=== PATIENT | male | born 1985 | race Caucasian/White ===

== ENCOUNTER 2016-08-25 21:23 | Emergency (ER) | payer MEDICAID ==
[~2016-08-25] VITALS: Wt 78.0 kg
[~2016-08-25 21:23] MED LIST: ASPI-781 PO; ATOR20TA38 PO; HYDR-762 PO; INSU100C SC; LANT3I SC; MTF1000T PO
[2016-08-25] MEDS ORDERED: KETOROLAC 30 MG INJ IM STA (21:52)
[2016-08-25] MEDS ORDERED: CEPH-443 PO (21:54)
[2016-08-25] MEDS ORDERED: BACTDS PO (21:54)
[2016-08-25] MEDS ORDERED: OXYC-279 PO (21:54)
[2016-08-25] MEDS ORDERED: IBUP-1542 PO (21:54)
--- NOTE | 2016-08-25 21:58 | ERD ---
ER Documentation Chief Complaint Date/Time DATE: 08/25/16 TIME: 21:56 Chief Complaint rt great toe pain, redness, necrosis 4 weeks HPI 31-year-old man presents with right toe pain and discomfort 1 week. He states last month he used oral antibiotics for 9 days and had initial relief. He denies purulent discharge or drainage from the toe, no difficulty ambulating, no chest pain or shortness of breath. He is post osteomyelitis and left hallux amputation ROS All systems reviewed and are negative except as per history of present illness. Medications Home Meds Active Scripts Ibuprofen* (Ibuprofen*) 600 Mg Tablet, 600 MG PO Q8 for PAIN AND/OR INFLAMMATION , #30 TAB Prov:DALY BOYCE MD 08/25/16 Sulfamethoxazole-Trimethoprim* (Bactrim* DS) 800-160 Mg Tab, 1 TAB PO BID for 10 Days, TAB Prov:DALY BOYCE MD 08/25/16 Cephalexin* (Keflex*) 500 Mg Capsule, 500 MG PO TID for 10 Days, CAP Prov:DALY BOYCE MD 08/25/16 Oxycodone HCl/Acetaminophen (Percocet 5-325 mg Tablet) 1 Each Tablet, 1 EACH PO TID for PAIN, #20 TAB Prov:DALY BOYCE MD 08/25/16 Reported Medications Insulin Glargine* (Lantus*) 100 Unit/Ml Soln, 39 UNIT SC QHS, #1 VIAL 08/25/16 Insulin Lispro (Humalog) 100 Unit/1 Ml Cartridge, 12 UNIT SQ AC MEALS 08/25/16 Metformin* (Glucophage*) 1,000 Mg Tablet, 1000 MG PO BID 05/18/13 Discontinued Scripts Hydrocodone Bit-Acetaminophen* ([place]*) 10-325 Mg Tablet, 1 TAB PO Q4H Y for PAIN, #16 TAB Prov:PENELOPE MARCUM MD 09/23/15 Hydrocodone Bit-Acetaminophen* ([place]*) 10-325 Mg Tablet, 1 TAB PO Q6 Y for PAIN , #16 TAB Prov:PENELOPE MARCUM MD 09/23/15 Insulin Lispro (Humalog) 100 U/Ml Cartridge, 8 UNITS SC WITH BREAKFAST for 30 Days, EA Prov:WAYNE GANDHI MD 06/22/15 Insulin Glargine* (Lantus*) 100 Unit/Ml Soln, 40 UNIT SC HS for 30 Days, BOTTLE Prov:WAYNE GANDHI MD 06/22/15 Aspirin* (Ecotrin*) 325 Mg Tabec, 325 MG PO DAILY for 90 Days, TAB Prov:WAYNE GANDHI MD 06/22/15 Atorvastatin Calcium* (Atorvastatin Calcium*) 20 Mg Tab, 40 MG PO HS for 30 Days , TAB Prov:WAYNE GANDHI MD 06/22/15 Allergies Allergies: Coded Allergies: No Known Allergy (Unverified , 08/25/16) PMhx/Soc Diabetes mellitus, previous osteomyelitis with left hallux amputation, asthma, previous TIA History of Surgery: Yes (L great toe infection amputation) Anesthesia Reaction: No Hx Neurological Disorder: No Hx Respiratory Disorders: Yes (asthma) Hx Cardiac Disorders: No Hx Psychiatric Problems: No Hx Miscellaneous Medical Probl: Yes (DM x 18 yrs) Hx Alcohol Use: Yes (3X/WEEK) Hx Substance Use: No Hx Tobacco Use: No FmHx Family History: No diabetes Physical Exam Vitals Vital Signs Date Time Temp Pulse Resp B/P Pulse Ox O2 Delivery O2 Flow Rate FiO2 08/25/16 22:51 73 18 123/79 97 Room Air 08/25/16 21:26 98.6 106 18 129/72 98 Physical Exam GENERAL: Well-developed, well-nourished, well-hydrated, in no apparent distress , looks nontoxic in appearance HEENT: Moist mucous membranes, pink conjunctiva, no cervical spine tenderness or step-off deformities, no goiter, no jaundice or icterus, extraocular movements intact without pain. No submandibular induration, and no pharyngeal erythema NEURO: Alert and oriented 3, cranial nerves II through XII intact bilaterally, pupils equal round reactive to light, no focal deficits or facial asymmetry, sensation intact distally Strength 5/5 in upper and lower extremities bilaterally CARDIAC: Regular rate and rhythm, no murmurs rubs or gallops LUNGS: Clear bilaterally no wheezing crackles or stridor ABDOMEN: Soft nontender, no guarding, no rigidity, no rebound, no psoas sign no obturator sign. Normoactive bowel sounds SKIN: Warm and dry to touch, superficial circular ulcer to the plantar aspect of the big toe on the right minimal skin erythema no induration to the skin no active purulent discharge, he has full plantarflexion and dorsiflexion of the at the MTP joints without difficulty and at the ankle without difficulty. EXTREMITIES: No clubbing cyanosis or edema, calves are bilaterally symmetrical, no Homans sign, no popliteal cord sign. Distal pulses equal and bilateral PSYCH: Normal affect without agitation or irritability Results 24 hrs Current Medications Medications (Trade) Dose Ordered Sig/Eloina Route PRN Reason Start Time Stop Time Status Last Admin Dose Admin Ketorolac Tromethamine (Toradol) 30 mg ONCE STAT IM 08/25/16 21:52 08/25/16 21:53 DC 08/25/16 22:02 Oxycodone/ Acetaminophen (Percocet (5/ 325)) 1 tab ONCE ONCE PO 08/25/16 22:00 08/25/16 22:01 DC 08/25/16 22:02 Procedures/MDM Blood sugar was 190. Patient was given Toradol 30 mg intramuscular injection Percocet 1 tablet p.o. for good pain control. I administered Toradol 30 mg intramuscular injection and Percocet 1 tablet p.o. for pain control. Both verbal and written instructions were provided for follow -up. I will initially treat him with oral antibiotics as an outpatient although if this does not help or if he is unable to coordinate care as an outpatient with amputation prevention center he was instructed to return here for admission as he may in fact have early osteomyelitis of the right hallux. Differential diagnoses considered, included but not limited to osteomyelitis of the right hallux, pulmonary embolism, aortic dissection, abdominal aortic aneurysm, sepsis, stroke, meningitis, encephalitis, pneumonia, appendicitis, cholecystitis, bowel obstruction, pyelonephritis, nephrolithiasis, cystitis, as well as metabolic, hematologic, and electrolyte abnormalities. As well as abscess, cellulitis, fractures, and dislocations. Patient feels much better at this time, and vital signs are normal, symptoms have improved. I did give strict instructions to return to the ED if symptoms continue or worsen, patient will otherwise follow-up with primary care physician. Patient understood instructions and agreed to plan. Departure Diagnosis: Primary Impression: Toe ulcer Laterality: right Non-pressure ulcer stage: limited to breakdown of skin Qualified Code: L97.511 - Toe ulcer, right, limited to breakdown of skin Condition: Good Patient Instructions: Diabetic Foot Ulcers Referrals: HA[facility] KEB[facility]E [facility] DALY BOYCE MD Aug 25, 2016 21:58
[2016-08-25] MEDS ORDERED: OXYCODONE/ACETAMINOPHEN (5/325) TAB PO ONE (22:00)
[2016-08-25] MEDS ORDERED: INSU100C SQ (22:14)
[2016-08-25] MEDS ORDERED: LANT3I SC (22:15)
[2016-08-25 22:51] VITALS: BP 123/79; PULSE 73; RESP 18
== END 2016-08-25 22:51 | disposition home or self-care (01) ==
LOC: E/R 21:23
DX: L97.511 Non-pressure chronic ulcer of other part of right foot limited to breakdown of skin (principal); J45.909 Unspecified asthma, uncomplicated; E11.9 Type 2 diabetes mellitus without complications; Z79.4 Long term (current) use of insulin; Z79.84 Long term (current) use of oral hypoglycemic drugs
CPT/HCPCS: 96372; J1885; Z7502; Z7610

== ENCOUNTER 2016-10-27 07:19 | Emergency (ER) | payer MEDICAID ==
[~2016-10-27] VITALS: Ht 180.3 cm; Wt 78.0 kg
[~2016-10-27 07:19] MED LIST changes: -ASPI-781 PO; -ATOR20TA38 PO; +BACTDS PO; +CEPH-443 PO; -HYDR-762 PO; +IBUP-1542 PO; -INSU100C SC; +INSU100C SQ; +OXYC-279 PO
[2016-10-27 07:22] VITALS: Ht 180.3 cm; Wt 78.0 kg
--- NOTE | 2016-10-27 10:44 | RADRPT ---
PROCEDURE: Right first toe x-ray CLINICAL INDICATION: Pain TECHNIQUE: 3 views of the right first toe COMPARISON: None FINDINGS: There is soft tissue swelling. The joint spaces are intact with anatomic alignment. No erosions or osteophytes are seen. There is no cortical destruction or periostitis. IMPRESSION: Soft tissue swelling right first toe. No fracture or dislocation. .Christopher Dave MD, MD Date Time Electronically viewed and signed by .Christopher Dave MD, on 10/27/2016 10:43 .A/
[2016-10-27 11:24] VITALS: BP 154/84; PULSE 86; RESP 16; TEMP 97.7
--- NOTE | 2016-10-27 13:17 | ERD ---
DATE OF SERVICE: HISTORY OF PRESENT ILLNESS: The patient is a 31-year-old male complaining of a wound to his right b ig toe. The patient states he has diabetes. He has had this wound there for the last 7 months. He was told at the [facility] he should have his toe removed secondary to concern for osteomyeliti s; however, the patient is here today for a second opinion. He has not taken medications. He has n o purulence. He has mild pain. No fevers. MEDICAL HISTORY: Diabetes and asthma. ALLERGIES: VANCOMYCIN. SURGICAL HISTORY: Amputation of the left great toe. SOCIAL HISTORY: Smoking history occasional. REVIEW OF SYSTEMS: A 12-point review of systems was done. Refer to the HPI for positives, all othe r systems are negative. PHYSICAL EXAMINATION: VITAL SIGNS: Temperature is 98.1, pulse 90, blood pressure is 159/78, respiratory rate 18, O2 satur ation 99% on room air. Pain intensity of 4/10. GENERAL: The patient is well-appearing, well-nourished, in no acute distress. CHEST: Clear to auscultation bilaterally. There are no rales, wheezes or rhonchi. HEART: Regular rate and rhythm. No murmurs, clicks, rubs or gallops. No S3 or S4. EXTREMITIES: Equal pulses bilaterally. There is no peripheral clubbing, cyanosis or edema. No focal swelling or erythema. Full range of motion. Grossly neurovascularly intact. SKIN: There is an ulcerated site noted on the right plantar portion of the right great toe. There i s no purulence, no surrounding erythema, no lymphatic streaking. Compartments are soft. EMERGENCY ROOM COURSE: X-ray was done of the right great toe, which showed swelling of the right gr eat toe. No fracture or dislocation. No erosions, no cortical destruction or . DIAGNOSIS: Diabetic ulcer. MEDICAL DECISION MAKING: I explained to the patient that he needs to be seen by a supervisor laboratory animal facility, as I cannot be competently rule out osteo; however, the patient's exam is not concerning and there is no erosion noted on imaging. The patient's exam is non-concerning. The patient is recommended follow u p with a supervisor laboratory animal facility within 1 to 2 days for a close evaluation or return to the ER if symptoms change or worsen. DISCHARGE: The patient was discharged stable. The patient was told to follow up with podiatry and given to few references. The patient was told if symptoms change or worsen, to return to the ER. Al l other questions were answered at the time of discharge. Discharge summary was given at the time o f departure. Patient understood and complied with the plan. Dictated By: ZARA MOODY for HARRISON TALAVERA/DEONTE Conf#: [id number] DID#: [id number]
== END 2016-10-27 11:24 | disposition home or self-care (01) ==
LOC: FTE 07:19
DX: E11.621 Type 2 diabetes mellitus with foot ulcer (principal); L97.519 Non-pressure chronic ulcer of other part of right foot with unspecified severity; J45.909 Unspecified asthma, uncomplicated; F17.210 Nicotine dependence, cigarettes, uncomplicated
CPT/HCPCS: 73660; Z7502

== ENCOUNTER 2017-04-01 13:53 | Emergency (ER) | payer SELFPAY ==
[~2017-04-01] VITALS: Ht 167.6 cm; Wt 82.5 kg
[2017-04-01 14:02] VITALS: Ht 167.6 cm; Wt 82.5 kg
== END 2017-04-01 15:29 | disposition left against medical advice (07) ==
LOC: FTE 13:53
DX: Z53.21 Procedure and treatment not carried out due to patient leaving prior to being seen by health care provider (principal)

== ENCOUNTER 2017-04-13 09:26 | Emergency (ER) | payer MEDICAID ==
[~2017-04-13] VITALS: Ht 175.3 cm; Wt 84.0 kg
[2017-04-13 09:42] VITALS: Ht 175.3 cm; Wt 84.0 kg
[2017-04-13] MEDS ORDERED: traMADol 50 MG TAB PO ONE (10:30)
--- NOTE | 2017-04-13 10:43 | RADRPT ---
PROCEDURE: XR Tibia and Fibula. CLINICAL INDICATION: Generalized pain TECHNIQUE: Two views of the right tibia and fibula are available for review. COMPARISON: None available FINDINGS: The right tibia and fibula are intact. No acute fracture or dislocation is seen. No radiopaque for eign body is identified. The soft tissues are unremarkable. Atherosclerotic vascular calcifications are present. IMPRESSION: 1. Unremarkable right tibia and fibula x-ray series. RPTAT: QQ .Benedict Olivares MD, Date Time Electronically viewed and signed by .Benedict Olivares MD, MD on 04/13/2017 10:43 .d/
--- NOTE | 2017-04-13 10:44 | RADRPT ---
PROCEDURE: XR Foot. CLINICAL INDICATION: Second toe amputation TECHNIQUE: Three views of the right foot are available for review. COMPARISON: 10/27/2016 FINDINGS: The patient has undergone interval amputation at the first and second proximal phalanges. The corti narayan surfaces at the stumps are mildly irregular, although nonspecific. There is overlying soft tiss ue swelling in this region. The remaining osseous structures are intact. No soft tissue gas is see n. There is atherosclerotic vascular calcification. IMPRESSION: 1. Status post amputation at the first and second mid proximal phalanges noting, nonspecific cortic al irregularity. Please note that MRI is more sensitive in evaluating for early changes of osteomyel itis. RPTAT: QQ .Benedict Olivares MD, MD Date Time Electronically viewed and signed by .Benedict Olivares MD, on 04/13/2017 10:44 .d/
--- NOTE | 2017-04-13 10:51 | ERD ---
ER Documentation Chief Complaint Date/Time DATE: 04/13/17 TIME: 10:48 Chief Complaint RT FOOT PAIN AT LOCATION OF TOE AMPUTATION. 2-TOES AMPUTATED LAST MONTH HPI 31-year-old male who is type II diabetic, insulin-dependent presents status post right second toe amputation a month ago at [facility], coming in with right lower extremity pain for the past 1 week. He states that is diffuse achy pain that goes from the right knee down to the right leg and foot. He was seen yesterday at [facility], they stated that everything looked okay I told him to follow-up with his human resources operations specialist, he has an appointment which is in 3 days. He describes sharp pain, achy, diffuse. He denies any fevers or chills. Patient denies trauma. ROS All systems reviewed and are negative except as per history of present illness. Medications Home Meds Active Scripts Tramadol HCl (Tramadol HCl) 50 Mg Tablet, 50 MG PO Q4 Y for PAIN, #20 TAB Prov:SANDRA COOPER PA-C 04/13/17 Gabapentin* (Neurontin*) 100 Mg Capsule, 100 MG PO TID, #60 CAP Prov:SANDRA COOPER PA-C 04/13/17 Ibuprofen* (Ibuprofen*) 600 Mg Tablet, 600 MG PO Q8 for PAIN AND/OR INFLAMMATION , #30 TAB Prov:DALY BOYCE MD 08/25/16 Sulfamethoxazole-Trimethoprim* (Bactrim* DS) 800-160 Mg Tab, 1 TAB PO BID for 10 Days, TAB Prov:DALY BOYCE MD 08/25/16 Cephalexin* (Keflex*) 500 Mg Capsule, 500 MG PO TID for 10 Days, CAP Prov:DALY BOYCE MD 08/25/16 Oxycodone HCl/Acetaminophen (Percocet 5-325 mg Tablet) 1 Each Tablet, 1 EACH PO TID for PAIN, #20 TAB Prov:DALY BOYCE MD 08/25/16 Reported Medications Insulin Glargine* (Lantus*) 100 Unit/Ml Soln, 39 UNIT SC QHS, #1 VIAL 08/25/16 Insulin Lispro (Humalog) 100 Unit/1 Ml Cartridge, 12 UNIT SQ AC MEALS 08/25/16 Metformin* (Glucophage*) 1,000 Mg Tablet, 1000 MG PO BID 05/18/13 Allergies Allergies: Coded Allergies: piperacillin (Verified Allergy, Unknown, RASH, 04/13/17) tazobactam (Verified Allergy, Unknown, RASH, 04/13/17) vancomycin (Verified Allergy, Unknown, RASH, 04/13/17) PMhx/Soc History of Surgery: Yes (L great toe amputation ,RT BIG TOE AND 2ND TOE AMPUTATION ) Anesthesia Reaction: No Hx Neurological Disorder: No Hx Respiratory Disorders: Yes (asthma) Hx Cardiac Disorders: No Hx Psychiatric Problems: No Hx Miscellaneous Medical Probl: Yes (DM) Hx Alcohol Use: Yes (3beers/day) Hx Substance Use: No Hx Tobacco Use: Yes Smoking Status: Never smoker Physical Exam Vitals Vital Signs Date Time Temp Pulse Resp B/P Pulse Ox O2 Delivery O2 Flow Rate FiO2 04/13/17 09:42 98.4 92 16 121/81 97 Physical Exam General: Well-developed, well-nourished. The patient appears in no acute distress. HEENT: Head is normocephalic, atraumatic. No scleral icterus. Pupils are equal , round, and reactive. Oral mucous membranes are moist. No pharyngeal erythema. Neck: Supple. Nontender. Lungs: Clear to auscultation. Normal air movement. Heart: Regular rate and rhythm. S1 and S2 are normal. No murmurs, gallops, or rubs. Abdomen: Soft, nontender, nondistended. Bowel sounds are normoactive. Extremities: There is no calf swelling, right lower extremity is atraumatic, no lymphatic streaking, negative Homans sign. Right second toe status post amputation, there is no erythema, drainage or warmth. Neurologic: Alert and oriented 3. No focal deficits. Skin: Normal turgor. No rash or lesions. Results 24 hrs Current Medications Medications (Trade) Dose Ordered Sig/Eloina Route PRN Reason Start Time Stop Time Status Last Admin Dose Admin Tramadol HCl (Ultram) 50 mg ONCE ONCE PO 04/13/17 10:30 04/13/17 10:31 DC 04/13/17 10:22 DIAGNOSTIC IMAGING REPORT Patient: ALCIDES FLORES : 1985 Age: 31 Sex: M MR #: [id number] DOS: 04/13/17 1015 Ordering MD: ALLISON, SANDRA PA-C Location: [facility] Room/Bed: PROCEDURE: XR Tibia and Fibula. CLINICAL INDICATION: Generalized pain TECHNIQUE: Two views of the right tibia and fibula are available for review. COMPARISON: None available FINDINGS: The right tibia and fibula are intact. No acute fracture or dislocation is seen. No radiopaque foreign body is identified. The soft tissues are unremarkable. Atherosclerotic vascular calcifications are present. IMPRESSION: 1. Unremarkable right tibia and fibula x-ray series. RPTAT: QQ .Benedict Olivares MD, MD Date Time Electronically viewed and signed by .Benedict Olivares MD, MD on 04/13/2017 10:43 .d/ CC: SANDRA COOPER PA-C DIAGNOSTIC IMAGING REPORT Patient: ALCIDES FLORES : 1985 Age: 31 Sex: M MR #: [id number] DOS: 04/13/17 1015 Ordering MD: SANDRA COOPER PA-C Location: [facility] Room/Bed: PROCEDURE: US Lower extremity Venous. CLINICAL INDICATION: RLE pain for 1 week TECHNIQUE: Multiple sonographic images of the right lower extremity deep venous system was obtained utilizing grayscale, color-flow, compressive sonography and doppler imaging with augmentation. The images were reviewed on a PACS workstation. COMPARISON: None. FINDINGS: There is normal compressibility and flow within the right common femoral, deep femoral, superficial femoral, posterior tibial, peroneal and popliteal veins. IMPRESSION: No sonographic evidence for deep venous thrombosis. RPTAT:AAJJ Physician David Date Time Electronically viewed and signed by Huy Ortega Physician on 04/13/2017 10: 59 MC/ CC: SANDRA COOPER PA-C DIAGNOSTIC IMAGING REPORT Patient: ALCIDES FLORES : 1985 Age: 31 Sex: M MR #: [id number] DOS: 04/13/17 1015 Ordering MD: SANDRA COOPER PA-C Location: [facility] Room/Bed: PROCEDURE: XR Foot. CLINICAL INDICATION: Second toe amputation TECHNIQUE: Three views of the right foot are available for review. COMPARISON: 10/27/2016 FINDINGS: The patient has undergone interval amputation at the first and second proximal phalanges. The cortical surfaces at the stumps are mildly irregular, although nonspecific. There is overlying soft tissue swelling in this region. The remaining osseous structures are intact. No soft tissue gas is seen. There is atherosclerotic vascular calcification. IMPRESSION: 1. Status post amputation at the first and second mid proximal phalanges noting , nonspecific cortical irregularity. Please note that MRI is more sensitive in evaluating for early changes of osteomyelitis. RPTAT: QQ .Benedict Olivares MD, MD Date Time Electronically viewed and signed by .Benedict Olivraes MD, MD on 04/13/2017 10:44 .d/ CC: SANDRA COOPER PA-C Procedures/MDM ED course: Patient received tramadol for pain. X-rays of the right foot, right lower extremity, as well as venous ultrasound study was obtained of the right lower extremity. Medical decision making: This 31-year-old male comes in status post amputation from diabetes to the right second toe complaining of right lower extremity pain for a week now. Differentials considered include infection after amputation, postsurgical pain, osteomyelitis, diabetic ulcer, DVT, cellulitis, fracture and among others.Patient presents with postoperative pain, I doubt there is infection. He has most of his pain in the leg and dorsum of the foot. Ultrasound ruled out DVT today. He has follow-up with his surgeon, podiatry on Saturday of next week which is 3 days from now. He will be given copies of all findings today, will be started on Neurontin, given tramadol for pain control. Departure Diagnosis: Primary Impression: Diabetes mellitus, type 2 Additional Impression: Post-op pain Condition: Good SANDRA COOPER PA-C Apr 13, 2017 10:51
--- NOTE | 2017-04-13 10:59 | RADRPT ---
PROCEDURE: US Lower extremity Venous. CLINICAL INDICATION: RLE pain for 1 week TECHNIQUE: Multiple sonographic images of the right lower extremity deep venous system was obtaine d utilizing grayscale, color-flow, compressive sonography and doppler imaging with augmentation. Th e images were reviewed on a PACS workstation. COMPARISON: None. FINDINGS: There is normal compressibility and flow within the right common femoral, deep femoral, superficial femoral, posterior tibial, peroneal and popliteal veins. IMPRESSION: No sonographic evidence for deep venous thrombosis. RPTAT:AAJJ Physician David Date Time Electronically viewed and signed by Physician David on 04/13/2017 10:59 /
[2017-04-13] MEDS ORDERED: TRAM50TA2 PO (11:12)
[2017-04-13] MEDS ORDERED: GABA100C PO (11:12)
== END 2017-04-13 11:20 | disposition home or self-care (01) ==
LOC: FTE 09:26
DX: E11.9 Type 2 diabetes mellitus without complications (principal); G89.18 Other acute postprocedural pain; J45.909 Unspecified asthma, uncomplicated; Z79.4 Long term (current) use of insulin; Z79.84 Long term (current) use of oral hypoglycemic drugs
CPT/HCPCS: 73590; 73630; 93971; Z7502; Z7610

== ENCOUNTER 2017-06-09 07:17 | Emergency (ER) | payer MEDICAID ==
[~2017-06-09] VITALS: Ht 180.3 cm; Wt 83.5 kg
[~2017-06-09 07:17] MED LIST changes: +GABA100C PO; +TRAM50TA2 PO
[2017-06-09 07:21] VITALS: Ht 180.3 cm; Wt 83.5 kg
--- NOTE | 2017-06-09 08:48 | ERD ---
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 The patient is status post amputation of left great toe pain 20/15. The patient denies fevers, chills. He is requesting today a refill for his Lantus, Humalog , metformin and pro-air. ROS SYSTEMIC symptoms: no fever, chills, no night sweats, no weight loss EYE symptoms: No blurred vision, no eye discharge OTOLARYNGEAL symptoms: No hearing loss. No ear pain, no sore throat CARDIOVASCULAR symptoms: No chest pain or discomfort, no palpitations. PULMONARY symptoms: No dyspnea, no cough, no wheezing. GASTROINTESTINAL symptoms: No abdominal pain, no nausea, no vomiting, no diarrhea MUSCULOSKELETAL symptoms: No arthralgias, no muscle aches. NEUROLOGY symptoms: No confusion, no syncope, no numbness or tingling. SKIN no rashes All systems reviewed and are negative except as per history of present illness. Medications Home Meds Active Scripts Mupirocin Calcium* (Mupirocin*) 2% - 15 Gram Cream..g., 1 APPLIC TOP TID for 28 Days, #2 TUB Prov:ANGEL LILLY MD 06/09/17 Sulfamethoxazole/Trimethoprim* (Bactrim Ds* Tablet) 1 Each Tablet, 1 TAB PO BID for 28 Days, TAB Prov:ANGEL LILLY MD 06/09/17 Albuterol Sulfate* (Proair HFA*) 8.5 Gm Hfa.aer.ad, 2 PUFF INH Q4, #1 INHALER Prov:ANGEL ILLLY MD 06/09/17 Insulin Lispro (Humalog) 100 Unit/1 Ml Cartridge, 12 UNIT SQ AC MEALS for 30 Days Prov:ANGEL LILLY MD 06/09/17 Metformin* (Glucophage*) 1,000 Mg Tablet, 1000 MG PO BID for 30 Days Prov:ANGEL LILLY MD 06/09/17 Insulin Glargine* (Lantus*) 100 Unit/Ml Soln, 39 UNIT SC QHS, #1 VIAL Prov:ANGEL LILLY MD 06/09/17 Tramadol HCl (Tramadol HCl) 50 Mg Tablet, 50 MG PO Q4 Y for PAIN, #20 TAB Prov:SANDRA COOPER PA-C 04/13/17 Gabapentin* (Neurontin*) 100 Mg Capsule, 100 MG PO TID, #60 CAP Prov:SANDRA COOPER PA-C 04/13/17 Ibuprofen* (Ibuprofen*) 600 Mg Tablet, 600 MG PO Q8 for PAIN AND/OR INFLAMMATION , #30 TAB Prov:DALY BOYCE MD 08/25/16 Sulfamethoxazole-Trimethoprim* (Bactrim* DS) 800-160 Mg Tab, 1 TAB PO BID for 10 Days, TAB Prov:DALY BOYCE MD 08/25/16 Cephalexin* (Keflex*) 500 Mg Capsule, 500 MG PO TID for 10 Days, CAP Prov:DALY BOYCE MD 08/25/16 Oxycodone HCl/Acetaminophen (Percocet 5-325 mg Tablet) 1 Each Tablet, 1 EACH PO TID for PAIN, #20 TAB Prov:DLAY BOYCE MD 08/25/16 Allergies Allergies: Coded Allergies: piperacillin (Verified Allergy, Unknown, RASH, 04/13/17) tazobactam (Verified Allergy, Unknown, RASH, 04/13/17) vancomycin (Verified Allergy, Unknown, RASH, 04/13/17) PMhx/Soc History of Surgery: Yes (L great toe amputation ,RT BIG TOE AND 2ND TOE AMPUTATION ) Anesthesia Reaction: No Hx Neurological Disorder: No Hx Respiratory Disorders: Yes (asthma) Hx Cardiac Disorders: No Hx Psychiatric Problems: No Hx Miscellaneous Medical Probl: Yes (DM) Hx Alcohol Use: Yes (3beers/day) Hx Substance Use: No Hx Tobacco Use: Yes Smoking Status: Never smoker Physical Exam Vitals Vital Signs Date Time Temp Pulse Resp B/P Pulse Ox O2 Delivery O2 Flow Rate FiO2 06/09/17 07:21 97.5 91 18 140/98 99 Physical Exam Patient is in no acute distress, vital signs stable. Alert and fully oriented. EYES: PERRLA, EOMI, Sclera and conjunctiva appear normal. EARS: Canals clear, tympanic membranes WNL THROAT: Normal oropharynx. NECK: Supple, No lymphadenopathy. Full ROM without pain or tenderness. HEART: RRR, no rubs, murmurs, clicks or gallops. LUNGS: Clear to auscultation. ABDOMEN: Soft, non-tender without masses or hepatosplenomegaly. EXTREMITIES: left foot: great toe amputated. 2nd toe with distal erythema and 0.6cm round superficial ulcer on the tip of the digit. No purulent discharge, no bone exposure. Decreased pedal pulses Results 24 hrs PROCEDURE: XR Left foot. CLINICAL INDICATION: Left foot pain, concern for osteomyelitis TECHNIQUE: Three views of the left foot were obtained. COMPARISON: Radiographs of the left foot February 06, 2015 FINDINGS: There is transmetatarsal amputation of the first metatarsal. There is suggestion of blunting of the tip of the second distal phalanx with adjacent soft tissue swelling, suspicious for osteomyelitis. Joint spaces are preserved. Soft tissues otherwise unremarkable. IMPRESSION: 1. Blunting of the tuft of the second distal phalanx with surrounding soft tissue swelling, suspicious for osteomyelitis (or possibly previous surgical intervention). Correlation with MRI is suggested for further evaluation. 2. Amputation of the first digit and majority of the first metatarsal. RPTAT: UU .Jose G Frankel MD, MD Date Time Electronically viewed and signed by .Jose G Frankel MD, MD on 06/09/2017 09:07 Procedures/MDM 32y/o male patient with history of poorly controlled type 2 diabetes mellitus is status post big toe amputation in 2014, presents to the ED c/o left second toe infection for 7 days days. Vital signs stable, Physical exam [unremarkable] . Differential diagnosis include but not limited to: Cellulitis, abscess, osteomyelitis, fracture, bursitis. Pertinent Data: Left foot x-rays: 1. Blunting of the tuft of the second distal phalanx with surrounding soft tissue swelling, suspicious for osteomyelitis (or possibly previous surgical intervention). Correlation with MRI is suggested for further evaluation. 2. Amputation of the first digit and majority of the first metatarsal. Physical examination and clinical presentation consistent most likely with infected diabetic ulcer. During the ED course the patient remained stable, afebrile. Results and medical impression discussed with patient who agrees with management. The patient will be discharged home with a Rx for antibiotics for 4weeks and follow up with his lace [facility] at [facility]. Side effects of prescribed narcotic medications (drowsiness, constipation, habituation) were reviewed. If symptoms persist, worsen or new symptoms develop, then patient is instructed to follow-up with the primary care provider. If the patient is unable to see the primary care provider, then return to the ED immediately. Departure Diagnosis: Primary Impression: Diabetic infection of left foot Additional Impression: Diabetes mellitus Condition: Stable Patient Instructions: Diabetic Foot Ulcers Additional Instructions: Muchas leno por [facility] para ye servicio. Esperamos que en ye visita a la bharat de emergencia ye problema medico haya sido solucionado y que se sienta mucho mejor. Para estar seguros que ye mejoria sigue en proceso, le pedimos el favor de hacer cali nandini de seguimiento medico con ye doctor primario en los proximos 2-4 alfred. Lleve con usted estos documentos y las medicinas recetadas. Si prateek sintomas empeoran y no puede izzy a ye doctor, por favor regrese a bharat de emergencia. GROVE-ANGEL EDMONDSON MD Jun 09, 2017 08:48
[2017-06-09] MEDS ORDERED: LANT3I SC (08:52)
[2017-06-09] MEDS ORDERED: MTF1000T PO (08:53)
[2017-06-09] MEDS ORDERED: INSU100C SQ (08:53)
[2017-06-09] MEDS ORDERED: ALBU8.5H3 INH (08:54)
--- NOTE | 2017-06-09 09:07 | RADRPT ---
PROCEDURE: XR Left foot. CLINICAL INDICATION: Left foot pain, concern for osteomyelitis TECHNIQUE: Three views of the left foot were obtained. COMPARISON: Radiographs of the left foot February 06, 2015 FINDINGS: There is transmetatarsal amputation of the first metatarsal. There is suggestion of blunting of the tip of the second distal phalanx with adjacent soft tissue sw elling, suspicious for osteomyelitis. Joint spaces are preserved. Soft tissues otherwise unremarkable. IMPRESSION: 1. Blunting of the tuft of the second distal phalanx with surrounding soft tissue swelling, suspicio us for osteomyelitis (or possibly previous surgical intervention). Correlation with MRI is suggested for further evaluation. 2. Amputation of the first digit and majority of the first metatarsal. RPTAT: UU .Jose G Frankel MD, Date Time Electronically viewed and signed by .Jose G Frankel MD, on 06/09/2017 09:07 .K/
[2017-06-09] MEDS ORDERED: MUPI15CR9 TOP (09:30)
[2017-06-09] MEDS ORDERED: SULF1TAB31 PO (09:30)
[2017-06-09] MEDS ORDERED: HYDR-906 PO (09:33)
== END 2017-06-09 09:40 | disposition home or self-care (01) ==
LOC: FTE 07:17
DX: E11.621 Type 2 diabetes mellitus with foot ulcer (principal); L97.529 Non-pressure chronic ulcer of other part of left foot with unspecified severity; J45.909 Unspecified asthma, uncomplicated; Z79.4 Long term (current) use of insulin; Z79.84 Long term (current) use of oral hypoglycemic drugs
CPT/HCPCS: 73630; Z7502

== ENCOUNTER 2017-11-06 09:38 | Emergency (ER) | END 2017-11-06 13:07 | disposition home or self-care (01) ==

== ENCOUNTER 2018-10-04 10:50 | Emergency (ER) | payer MEDICAID ==
[~2018-10-04] VITALS: Ht 152.4 cm; Wt 82.6 kg
[~2018-10-04 10:50] MED LIST changes: +ALBU18HF INHALATION; +ALBU2.5V3 NEB; +ALBU8.5H8 INH; +CETI10CA PO; +DOXY100T20 PO; +HYDR-4011 PO; +MUPI15CR9 TOP; +SULF1TAB31 PO
[2018-10-04 10:51] VITALS: Ht 152.4 cm; Wt 82.6 kg
[2018-10-04] MEDS ORDERED: ALBUTEROL 0.083% (NEB) 2.5 MG/3 ML AMP HHN STA ×2 (11:36→14:12)
[2018-10-04] MEDS ORDERED: METHYLPREDNISOLONE 125 MG INJ IV ONE (12:00)
[2018-10-04] MEDS ORDERED: morphine 4 MG/ML VIAL IV STA (12:04)
[2018-10-04] MEDS ORDERED: IBUP-1542 PO (12:37)
[2018-10-04] MEDS ORDERED: ALBU18HF INHALATION (12:37)
[2018-10-04] MEDS ORDERED: PRED20TA PO (12:37)
[2018-10-04] MEDS ORDERED: AZIT250T PO (12:37)
[2018-10-04] MEDS ORDERED: SOD CHLORIDE 0.9% 1,000 ML IV ONE ×2 (13:10→14:14)
--- NOTE | 2018-10-04 13:12 | ERD ---
ER Documentation Chief Complaint Chief Complaint COUGH WITH CHEST WALL PAIN X 4 DAYS HPI 33-year-old male presents with left-sided chest wall pain, cough and fever for last 4 days. He was seen at all a few 2 days ago and was told he had a bacterial infection but he is not given any prescriptions according to the patient. Denies any hemoptysis. Denies any vomiting, abdominal pain, diarrhea, urinary complaints. Pain is in the left chest wall and is pleuritic. Denies any calf swelling. Patient has history of diabetes. Denies headache, vomiting, abdominal pain. ROS All systems reviewed and are negative except as per history of present illness. Medications Home Meds Active Scripts Ibuprofen* (Motrin*) 600 Mg Tab, 600 MG PO Q6, #15 TAB Prov:RAIZA GUTIERRES MD 10/04/18 Prednisone* (Prednisone*) 20 Mg Tab, 40 MG PO DAILY for 4 Days, TAB Start October 05, 2018 Prov:RAIZA GUTIERRES MD 10/04/18 Albuterol Sulfate* (Ventolin HFA*) 18 Gm Hfa.aer.ad, 2 PUFF INHALATION Q4H, #1 INHALER Prov:RAIZA GUTIERRES MD 10/04/18 Azithromycin* (Zithromax*) 250 Mg Tablet, 250 MG PO .NaifPACK DIRECTED, #6 TAB TAKE 500 MG (2 TABS) THE FIRST DAY THEN 250 MG (1 TAB) DAYS 2-5 Prov:RAIZA GUTIERRES MD 10/04/18 Cetirizine Hcl* (Zyrtec*) 10 Mg Capsule, 10 MG PO DAILY, #14 TAB.CHEW Prov:GHULAM BLOCK PA-C 11/06/17 Albuterol Sulfate* (Albuterol Sulfate* Neb) 0.083%-3 Ml Neb, 2.5 MG NEB Q4 PRN for SHORTNESS OF BREATH, #30 EA Prov:GHULAM BLOCK PA-C 11/06/17 Albuterol Sulfate* (Ventolin HFA*) 18 Gm Hfa.aer.ad, 2 PUFF INHALATION Q4H, #1 INHALER Prov:GHULAM BLOCK PA-C 11/06/17 Doxycycline Hyclate* (Doxycycline Hyclate*) 100 Mg Tablet.dr, 100 MG PO BID for 10 Days, TAB Prov:GHULAM BLOCK PA-C 11/06/17 Hydrocodone/Acetaminophen (Franklin 5-325 Tablet) 1 Each Tablet, 1 TAB PO Q6H PRN for PAIN, #20 TAB Prov:ANGEL LILLY MD 06/09/17 Mupirocin Calcium* (Mupirocin*) 2% - 15 Gram Cream..g., 1 APPLIC TOP TID for 28 Days, #2 TUB Prov:ANGEL LILLY MD 06/09/17 Sulfamethoxazole/Trimethoprim* (Bactrim Ds* Tablet) 1 Each Tablet, 1 TAB PO BID for 28 Days, TAB Prov:ANGEL LILLY MD 06/09/17 Albuterol Sulfate* (Proair HFA*) 8.5 Gm Hfa.aer.ad, 2 PUFF INH Q4, #1 INHALER Prov:ANGEL LILLY MD 06/09/17 Insulin Lispro (Humalog) 100 Unit/1 Ml Cartridge, 12 UNIT SQ AC MEALS for 30 Days Prov:ANGEL LILLY MD 06/09/17 Metformin* (Glucophage*) 1,000 Mg Tablet, 1000 MG PO BID for 30 Days Prov:ANGEL LILLY MD 06/09/17 Insulin Glargine* (Lantus*) 100 Unit/Ml Soln, 39 UNIT SC QHS, #1 VIAL Prov:ANGEL LILLY MD 06/09/17 Tramadol HCl (Tramadol HCl) 50 Mg Tablet, 50 MG PO Q4 PRN for PAIN, #20 TAB Prov:SANDRA COOPER PA-C 04/13/17 Gabapentin* (Neurontin*) 100 Mg Capsule, 100 MG PO TID, #60 CAP Prov:SANDRA COOPER PA-C 04/13/17 Ibuprofen* (Ibuprofen*) 600 Mg Tablet, 600 MG PO Q8 for PAIN AND/OR INFLAMMATION, #30 TAB Prov:DALY BOYCE MD 08/25/16 Sulfamethoxazole-Trimethoprim* (Bactrim* DS) 800-160 Mg Tab, 1 TAB PO BID for 10 Days, TAB Prov:DALY BOYCE MD 08/25/16 Cephalexin* (Keflex*) 500 Mg Capsule, 500 MG PO TID for 10 Days, CAP Prov:DALY BOYCE MD 08/25/16 Oxycodone HCl/Acetaminophen (Percocet 5-325 mg Tablet) 1 Each Tablet, 1 EACH PO TID for PAIN, #20 TAB Prov:DALY BOYCE MD 08/25/16 Allergies Allergies: Coded Allergies: piperacillin (Verified Allergy, Unknown, RASH, 10/04/18) tazobactam (Verified Allergy, Unknown, RASH, 10/04/18) vancomycin (Verified Allergy, Unknown, RASH, 10/04/18) PMhx/Soc History of Surgery: Yes (L great toe amputation ,RT BIG TOE AND 2ND TOE AMPUTATION ) Anesthesia Reaction: No Hx Neurological Disorder: No Hx Respiratory Disorders: Yes (asthma) Hx Cardiac Disorders: No Hx Psychiatric Problems: No Hx Miscellaneous Medical Probl: Yes (DM) Hx Alcohol Use: Yes (3beers/day) Hx Substance Use: No Hx Tobacco Use: Yes Smoking Status: Current every day smoker FmHx Family History: No diabetes, No coronary disease, No other Physical Exam Vitals Vital Signs Date Temp Pulse Resp B/P (MAP) Pulse Ox O2 O2 Flow FiO2 Time Delivery Rate 10/04/18 87 20 98 21 14:33 10/04/18 97 20 96 21 12:15 10/04/18 97.5 83 18 147/80 99 10:51 (102) Physical Exam Const: No acute distress Head: Atraumatic Eyes: Normal Conjunctiva ENT: Normal External Ears, Nose and Mouth. TMs and oropharynx normal. Neck: Full range of motion. No meningismus. Resp: Clear to auscultation bilaterally. Diffuse coarse breath sounds and wheezing. No rales or retractions appreciated. Cardio: Regular rate and rhythm, no murmurs Abd: Soft, non tender, non distended. Normal bowel sounds Skin: No petechiae or rashes Back: No midline or flank tenderness Ext: No cyanosis, or edema Neur: Awake and alert Psych: Normal Mood and Affect Result Diagram: 10/04/18 1201 10/04/18 1201 Results 24 hrs Laboratory Tests Test 10/04/18 12:01 10/04/18 13:40 White Blood Count 10.7 10^3/ul Red Blood Count 4.83 10^6/ul Hemoglobin 14.2 g/dl Hematocrit 41.5 % Mean Corpuscular Volume 85.9 fl Mean Corpuscular Hemoglobin 29.4 pg Mean Corpuscular Hemoglobin Concent 34.2 g/dl Red Cell Distribution Width 11.8 % Platelet Count 295 10^3/UL Mean Platelet Volume 11.2 fl Immature Granulocytes % 0.500 % Neutrophils % 67.5 % Lymphocytes % 24.3 % Monocytes % 6.5 % Eosinophils % 0.6 % Basophils % 0.6 % Nucleated Red Blood Cells % 0.0 /100WBC Immature Granulocytes # 0.050 10^3/ul Neutrophils # 7.2 10^3/ul Lymphocytes # 2.6 10^3/ul Monocytes # 0.7 10^3/ul Eosinophils # 0.1 10^3/ul Basophils # 0.1 10^3/ul Nucleated Red Blood Cells # 0.0 10^3/ul Sodium Level 132 mmol/L Potassium Level 4.6 mmol/L Chloride Level 94 mmol/L Carbon Dioxide Level 20 mmol/L Anion Gap 18 Blood Urea Nitrogen 19 mg/dl Creatinine 1.26 mg/dl Est Glomerular Filtrat Rate mL/min > 60 mL/min Glucose Level 382 mg/dl Calcium Level 9.5 mg/dl Total Bilirubin 0.9 mg/dl Direct Bilirubin 0.00 mg/dl Indirect Bilirubin 0.9 mg/dl Aspartate Amino Transf (AST/SGOT) 16 IU/L Alanine Aminotransferase (ALT/SGPT) 19 IU/L Alkaline Phosphatase 149 IU/L Total Protein 7.7 g/dl Albumin 4.1 g/dl Globulin 3.60 g/dl Albumin/Globulin Ratio 1.13 Urine Color YELLOW Urine Clarity CLEAR Urine pH 5.0 Urine Specific [place] 1.025 Urine Ketones 2+ mg/dL Urine Nitrite NEGATIVE mg/dL Urine Bilirubin NEGATIVE mg/dL Urine Urobilinogen NEGATIVE mg/dL Urine Leukocyte Esterase NEGATIVE Saira/ul Urine Microscopic RBC 4 /HPF Urine Microscopic WBC 1 /HPF Urine Mucus FEW /HPF Urine Hemoglobin 2+ mg/dL Urine Glucose 3+ mg/dL Urine Total Protein 2+ mg/dl Current Medications Medications Dose Sig/Eloina Start Time Status Last (Trade) Ordered Route PRN Stop Time Admin Dose Reason Admin 125 mg ONCE ONCE 10/04/18 DC 10/04/18 Methylprednis IV 12:00 12:20 olone Sodium 10/04/18 12:01 Succinate (Solu-Medrol) Albuterol 5 mg ONCE STAT 10/04/18 DC 10/04/18 (Proventil HHN 11:36 12:11 0.083% (Neb)) 10/04/18 11:38 Morphine 4 mg ONCE STAT 10/04/18 DC 10/04/18 Sulfate IV 12:04 12:16 (morphine) 10/04/18 12:05 Sodium 1,000 ml @ Q0M ONCE 10/04/18 DC 10/04/18 Chloride 0 mls/hr IV 13:10 13:37 10/04/18 13:13 Albuterol 5 mg ONCE STAT 10/04/18 DC 10/04/18 (Proventil HHN 14:12 14:31 0.083% (Neb)) 10/04/18 14:18 Sodium 1,000 ml @ Q0M ONCE 10/04/18 DC 10/04/18 Chloride 0 mls/hr IV 14:14 14:24 10/04/18 14:16 Departure Diagnosis: Primary Impression: Chest wall pain Additional Impression: Cough Condition: Stable Patient Instructions: Pleurisy, Bronchitis With Wheezing (Adult) Additional Instructions: No abnormality seen on examinations today. We will treat for bronchitis and wheezing. For new or worsening symptoms with primary care doctor. Cheque otro vez con ye doctor primario en el proximo alfred or regresa para mas o nueva simptomas. RAIZA GUTIERRES MD Oct 04, 2018 13:12
[2018-10-04 15:54] VITALS: BP 114/64; PULSE 114; RESP 24
[2018-10-04] MEDS ORDERED: INSULIN LISPRO 100 UNIT/ML VIAL SC ONE (16:00)
== END 2018-10-04 16:50 | disposition home or self-care (01) ==
LOC: FTE 10:50
DX: R07.89 Other chest pain (principal); E11.9 Type 2 diabetes mellitus without complications; J45.909 Unspecified asthma, uncomplicated; F17.210 Nicotine dependence, cigarettes, uncomplicated; Z79.4 Long term (current) use of insulin
CPT/HCPCS: 36415; 71045; 80053; 81001; 82962; 85025; 87040; 94640; 94664; 96372; 96374; 96375; J1815; J2270; J2930; J7030; Z7502; Z7610

== ENCOUNTER 2018-10-06 13:51 | Emergency (ER) | payer SELFPAY ==
[~2018-10-06] VITALS: Ht 177.8 cm; Wt 84.2 kg
[~2018-10-06 13:51] MED LIST changes: +AZIT250T PO; +PRED20TA PO
[2018-10-06 15:53] VITALS: BP 132/83; PULSE 96; RESP 20; Ht 177.8 cm; Wt 84.2 kg
== END 2018-10-06 16:18 | disposition left against medical advice (07) ==
LOC: E/R 13:51
DX: Z53.21 Procedure and treatment not carried out due to patient leaving prior to being seen by health care provider (principal)

== ENCOUNTER 2019-01-05 11:03 | Emergency (ER) | payer MEDICAID ==
[~2019-01-05] VITALS: Ht 170.2 cm; Wt 81.7 kg
[2019-01-05 11:08] VITALS: Ht 170.2 cm; Wt 81.7 kg
[2019-01-05] MEDS ORDERED: HYDROmorphONE 1 MG/ML SYG IV STA (12:41)
[2019-01-05] MEDS ORDERED: KETOROLAC 30 MG INJ IV STA (12:41)
[2019-01-05] MEDS ORDERED: ONDANSETRON 4 MG INJ IV STA (12:41)
[2019-01-05] MEDS ORDERED: SOD CHLORIDE 0.9% 1,000 ML IV STA (12:41)
--- NOTE | 2019-01-05 13:31 | ERD ---
ER Documentation Chief Complaint Chief Complaint EYE PAIN & SPOTS W/HEADACHE X3 DAYS, BS 67 @ 0300 HPI This is a 33-year-old male with a history of insulin-dependent diabetes mellitus. The patient presents to the emergency department complaining of a unilateral pulsating right-sided headache for the past 3 days. He states that the headache is worse when he wakes in the morning. He does indicate that this is not the worst headache of his life as he did have a similar headache 3 months prior to arrival. He denies any neck pain. He has had no fevers or shaking or chills. Indicates that he took his blood glucose at 3 AM this morning when the headache worsened and it was 67. He denies any polyuria or polydipsia. He has had changes in his vision as he states his right eye he is noticed spots. He states that the spots are worse when he is in light with photophobia. He denies any phonophobia. Again the patient states he had similar symptoms roughly 3 months ago and was given [place]. He did take a [place] at home but states this did not improve his symptoms. He has not felt nauseous and did not experience any diarrhea constipation and no emesis. ROS All systems reviewed and are negative except as per history of present illness. Medications Home Meds Active Scripts Naproxen* (Naprosyn*) 500 Mg Tablet, 500 MG PO BID PRN for PAIN AND/OR INFLAMMATION, #30 TAB Prov:SAMIRA SNOW MD 01/05/19 Ibuprofen* (Motrin*) 600 Mg Tab, 600 MG PO Q6, #15 TAB Prov:RAIZA GUTIERRES MD 10/04/18 Prednisone* (Prednisone*) 20 Mg Tab, 40 MG PO DAILY for 4 Days, TAB Start October 05, 2018 Prov:RAIZA GUTIERRES MD 10/04/18 Albuterol Sulfate* (Ventolin HFA*) 18 Gm Hfa.aer.ad, 2 PUFF INHALATION Q4H, #1 INHALER Prov:RAIZA GUTIERRES MD 10/04/18 Azithromycin* (Zithromax*) 250 Mg Tablet, 250 MG PO .ZPACK DIRECTED, #6 TAB TAKE 500 MG (2 TABS) THE FIRST DAY THEN 250 MG (1 TAB) DAYS 2-5 Prov:RAIZA GUTIERRES MD 10/04/18 Cetirizine Hcl* (Zyrtec*) 10 Mg Capsule, 10 MG PO DAILY, #14 TAB.CHEW Prov:GHULAM BLOCK PA-C 11/06/17 Albuterol Sulfate* (Albuterol Sulfate* Neb) 0.083%-3 Ml Neb, 2.5 MG NEB Q4 PRN for SHORTNESS OF BREATH, #30 EA Prov:GHULAM BLOCK PA-C 11/06/17 Albuterol Sulfate* (Ventolin HFA*) 18 Gm Hfa.aer.ad, 2 PUFF INHALATION Q4H, #1 INHALER Prov:GHULAM BLOCK PA-C 11/06/17 Doxycycline Hyclate* (Doxycycline Hyclate*) 100 Mg Tablet.dr, 100 MG PO BID for 10 Days, TAB Prov:GHULAM BLOCK PA-C 11/06/17 Hydrocodone/Acetaminophen ([place] 5-325 Tablet) 1 Each Tablet, 1 TAB PO Q6H PRN for PAIN, #20 TAB Prov:ANGEL LILLY MD 06/09/17 Mupirocin Calcium* (Mupirocin*) 2% - 15 Gram Cream..g., 1 APPLIC TOP TID for 28 Days, #2 TUB Prov:ANGEL LILLY MD 06/09/17 Sulfamethoxazole/Trimethoprim* (Bactrim Ds* Tablet) 1 Each Tablet, 1 TAB PO BID for 28 Days, TAB Prov:ANGEL LILLY MD 06/09/17 Albuterol Sulfate* (Proair HFA*) 8.5 Gm Hfa.aer.ad, 2 PUFF INH Q4, #1 INHALER Prov:ANGEL LILLY MD 06/09/17 Insulin Lispro (Humalog) 100 Unit/1 Ml Cartridge, 12 UNIT SQ AC MEALS for 30 Days Prov:ANGEL LILLY MD 06/09/17 Metformin* (Glucophage*) 1,000 Mg Tablet, 1000 MG PO BID for 30 Days Prov:ANGEL LLILY MD 06/09/17 Insulin Glargine* (Lantus*) 100 Unit/Ml Soln, 39 UNIT SC QHS, #1 VIAL Prov:ANGEL LILLY MD 06/09/17 Tramadol HCl (Tramadol HCl) 50 Mg Tablet, 50 MG PO Q4 PRN for PAIN, #20 TAB Prov:SANDRA COOPER PA-C 04/13/17 Gabapentin* (Neurontin*) 100 Mg Capsule, 100 MG PO TID, #60 CAP Prov:SANDRA COOPER PA-C 04/13/17 Ibuprofen* (Ibuprofen*) 600 Mg Tablet, 600 MG PO Q8 for PAIN AND/OR INFLAMMATION, #30 TAB Prov:DALY BOYCE MD 08/25/16 Sulfamethoxazole-Trimethoprim* (Bactrim* DS) 800-160 Mg Tab, 1 TAB PO BID for 10 Days, TAB Prov:DALY BOYCE MD 08/25/16 Cephalexin* (Keflex*) 500 Mg Capsule, 500 MG PO TID for 10 Days, CAP Prov:DALY BOYCE MD 08/25/16 Oxycodone HCl/Acetaminophen (Percocet 5-325 mg Tablet) 1 Each Tablet, 1 EACH PO TID for PAIN, #20 TAB Prov:DALY BOYCE MD 08/25/16 Allergies Allergies: Coded Allergies: piperacillin (Verified Allergy, Unknown, RASH, 10/04/18) tazobactam (Verified Allergy, Unknown, RASH, 10/04/18) vancomycin (Verified Allergy, Unknown, RASH, 10/04/18) PMhx/Soc History of Surgery: Yes (L great toe amputation ,RT BIG TOE AND 2ND TOE AMPUTATION ) Anesthesia Reaction: No Hx Neurological Disorder: No Hx Respiratory Disorders: Yes (asthma) Hx Cardiac Disorders: No Hx Psychiatric Problems: No Hx Miscellaneous Medical Probl: No Hx Alcohol Use: Yes (3beers/day) Hx Substance Use: No Hx Tobacco Use: Yes Smoking Status: Current every day smoker Physical Exam Vitals Vital Signs Date Temp Pulse Resp B/P (MAP) Pulse Ox O2 O2 Flow FiO2 Time Delivery Rate 01/05/19 97.1 95 18 121/71 98 11:08 (88) Physical Exam Constitutional:Well-developed. Well-nourished. HEENT:Normocephalic. Atraumatic.Pupils were equal round reactive to light. Moist mucous membranes.No tonsillar exudates. Funduscopy exam shows sharp optic disks and venous pulsations were present. Nasal septal hematoma. No hemotympanum. No tenderness over the frontal or maxillary sinuses. Neck: No nuchal rigidity. No lymphadenopathy. No posterior cervical spine tenderness or step-offs. Respiratory: Not using accessory muscles of respiration.Lungs were clear to auscultation bilaterally. No rhonchi. No rales. No wheezing. Cardiovascular: Regular rate regular rhythm.No murmurs. No rubs were appreciated.S1, S2 normal. Distal pulses are palpable 2+ bilaterally. NEURO: Patient was alert, awake, orientated x3.No facial droop. Gait observed and normal with no ataxia.Speech had regular rate and rhythm. No focal neurological deficits. Result Diagram: 01/05/19 1247 01/05/19 1247 Results 24 hrs Laboratory Tests Test 01/05/19 12:47 White Blood Count 6.3 10^3/ul Red Blood Count 4.62 10^6/ul Hemoglobin 13.4 g/dl Hematocrit 39.5 % Mean Corpuscular Volume 85.5 fl Mean Corpuscular Hemoglobin 29.0 pg Mean Corpuscular Hemoglobin Concent 33.9 g/dl Red Cell Distribution Width 12.3 % Platelet Count 240 10^3/UL Mean Platelet Volume 11.7 fl Immature Granulocytes % 0.200 % Neutrophils % 55.9 % Lymphocytes % 36.6 % Monocytes % 4.9 % Eosinophils % 1.9 % Basophils % 0.5 % Nucleated Red Blood Cells % 0.0 /100WBC Immature Granulocytes # 0.010 10^3/ul Neutrophils # 3.5 10^3/ul Lymphocytes # 2.3 10^3/ul Monocytes # 0.3 10^3/ul Eosinophils # 0.1 10^3/ul Basophils # 0.0 10^3/ul Nucleated Red Blood Cells # 0.0 10^3/ul Sodium Level 134 mmol/L Potassium Level 5.2 mmol/L Chloride Level 104 mmol/L Carbon Dioxide Level 25 mmol/L Anion Gap 5 Blood Urea Nitrogen 25 mg/dl Creatinine 1.54 mg/dl Est Glomerular Filtrat Rate mL/min 52 mL/min Glucose Level 454 mg/dl Calcium Level 8.8 mg/dl Phosphorus Level 3.6 mg/dl Magnesium Level 2.1 mg/dl Total Bilirubin 0.5 mg/dl Direct Bilirubin 0.00 mg/dl Indirect Bilirubin 0.5 mg/dl Aspartate Amino Transf (AST/SGOT) 21 IU/L Alanine Aminotransferase (ALT/SGPT) 18 IU/L Alkaline Phosphatase 110 IU/L Total Protein 6.4 g/dl Albumin 3.7 g/dl Globulin 2.70 g/dl Albumin/Globulin Ratio 1.37 Current Medications Medications Dose Sig/Eloina Start Time Status Last (Trade) Ordered Route PRN Stop Time Admin Dose Reason Admin Sodium 1,000 ml @ Q1H STAT 01/05/19 01/05/19 Chloride 1,000 mls/hr IV 12:41 12:56 01/05/19 13:40 Ondansetron 4 mg ONCE STAT 01/05/19 DC 01/05/19 HCl (Zofran IV 12:41 12:57 Inj) 01/05/19 12:44 1 mg ONCE STAT 01/05/19 DC 01/05/19 Hydromorphone IV 12:41 12:57 HCl 01/05/19 12:44 (Dilaudid) Ketorolac 30 mg ONCE STAT 01/05/19 DC 01/05/19 Tromethamine IV 12:41 12:56 (Toradol) 01/05/19 12:44 Procedures/MDM The patient presented to the emergency department with an acute single headache that presented within hours of onset my differential diagnosis included but was not limited to meningitis, SAH, intracerebral hemorrhage, hypertensive encephalopathy, cranial artery dissection, cerebral venous sinus thrombosis, traumatic, acute sinusitis. The patient has no ocular symptoms to suggest temporal neuritis, acute narrow-angle glaucoma or pituitary apoplexy. The patient did not appear to have a toxic or metabolic etiology such as fever, hypoglycemia, high-altitude disease or carbon monoxide poisoning. This was not the patients worse headache of their life. The patient had a complete neurologic and fundoscopic exam performed by myself that was normal with no focal neurological deficits or retinal hemorrhage. The patient stated this headache was not severe or distinct from other headaches and the history with the physical exam findings did not likely suggest SAH. Therefore, I did not feel it was clinically necessary to perform a lumbar puncture and CSF analysis. I did obtain a CT scan the patient's head and there is no intracerebral hemorrhage mass-effect or midline shift. My reason for obtaining the CT scan of the head as the patient did have physical exam findings that were concerning for increased intracranial pressure as he stated the headache was more prominent in the morning upon awakening. My clinical suspicion was low for meningitis or sinusitis. The patient did have ancillary laboratory work given that he is an insulin-dependent diabetic and there is no evidence of DKA. The patient is a leukocytosis. The patient received IV fluids intravenous morphine and Zofran for analgesia control. His headache improved. Regarding the changes in the patient's vision I did feel that this could be a result of diabetic retinopathy. He had no evidence of papilledema on physical exam no physical exam findings or history to suggest retinal detachment. I indicated he would benefit from following up with an outpatient head esthetician. He does not wear glasses or contacts. His visual acuity was 20 out of 20 on my physical exam. The patient was hyperglycemic with a blood glucose of 484. There is no evidence of ketosis. The patient received IV fluids to treat the hyperglycemia with subcutaneous insulin. Blood glucose improved. The patient was discharged home in fair condition. They were instructed to return to the emergency department at any time if there was any worsening of their condition. The patient stated they would follow up with their PCP in the next 24-48 hours to initiate a suitable medication regimen under the care of their PCP as well as to allow their PCP to monitor any drug reactions. The patient was discharged home with prescriptions after they gave informed consent to the new medication. They were also fully informed by myself on the adverse effects and adverse drug interactions in order to provide adequate safeguards to prevent possible adverse reactions to medications. Departure Diagnosis: Primary Impression: Visual changes Additional Impressions: Ocular migraine Hyperglycemia without ketosis Condition: SAMIRA May MD January 05, 2019 13:31
[2019-01-05] MEDS ORDERED: NAPR-985 PO (13:33)
[2019-01-05] MEDS ORDERED: INSULIN LISPRO 100 UNIT/ML VIAL SC STA (13:39)
[2019-01-05 14:40] VITALS: BP 119/72; PULSE 78; RESP 20
== END 2019-01-05 14:40 | disposition home or self-care (01) ==
LOC: FTE 11:03
DX: G43.809 Other migraine, not intractable, without status migrainosus (principal); H53.8 Other visual disturbances; E11.65 Type 2 diabetes mellitus with hyperglycemia; J45.909 Unspecified asthma, uncomplicated; F17.210 Nicotine dependence, cigarettes, uncomplicated; Z79.4 Long term (current) use of insulin
CPT/HCPCS: 70450; 80053; 82962; 83735; 84100; 85025; 96372; 96374; 96375; J1170; J1815; J1885; J2405; J7030; Z7502

== ENCOUNTER 2019-01-18 11:48 | Emergency (ER) | payer SELFPAY ==
[~2019-01-18] VITALS: Ht 165.1 cm; Wt 80.0 kg
[~2019-01-18 11:48] MED LIST changes: +NAPR-985 PO
[2019-01-18 11:52] VITALS: BP 144/77; PULSE 91; RESP 18; Ht 165.1 cm; Wt 80.0 kg
== END 2019-01-18 13:29 | disposition left against medical advice (07) ==
LOC: E/R 11:48
DX: Z53.21 Procedure and treatment not carried out due to patient leaving prior to being seen by health care provider (principal)
CPT/HCPCS: 82962

== ENCOUNTER 2019-01-27 08:21 | Emergency (ER) | payer MEDICAID ==
[~2019-01-27] VITALS: Ht 175.3 cm; Wt 79.1 kg
[2019-01-27 08:30] VITALS: BP 130/90; PULSE 81; RESP 18; Ht 175.3 cm; Wt 79.1 kg
[2019-01-27] MEDS ORDERED: SULF1TAB31 PO (09:37)
[2019-01-27] MEDS ORDERED: CEPH-443 PO (09:37)
--- NOTE | 2019-01-27 10:18 | ERD ---
ER Documentation Chief Complaint Chief Complaint DIABETIC ULCER NEEDS CHECKED HPI 33-year-old male presenting for a wound on his left foot. Patient has a history of diabetic ulcers with amputations. Patient stated over the last week he noted some purulent discharge from the area on the bottom of his left foot. Denies any fevers. Has not use any medications on the area. Denies other medical problems. Allergic to Zosyn and vancomycin. Surgical history denies. Social history denies ROS All systems reviewed and are negative except as per history of present illness. Medications Home Meds Active Scripts Sulfamethoxazole/Trimethoprim* (Bactrim Ds* Tablet) 1 Each Tablet, 1 TAB PO BID, #14 TAB Prov:ZOHAIB BROWN PA-C 01/27/19 Cephalexin* (Keflex*) 500 Mg Capsule, 500 MG PO QID for 7 Days, CAP Prov:ZOHAIB BROWN PA-C 01/27/19 Naproxen* (Naprosyn*) 500 Mg Tablet, 500 MG PO BID PRN for PAIN AND/OR INFLAMMATION, #30 TAB Prov:SAMIRA SNOW MD 01/05/19 Ibuprofen* (Motrin*) 600 Mg Tab, 600 MG PO Q6, #15 TAB Prov:RAIZA GUTIERRES MD 10/04/18 Prednisone* (Prednisone*) 20 Mg Tab, 40 MG PO DAILY for 4 Days, TAB Start October 05, 2018 Prov:RAIZA GUTIERRES MD 10/04/18 Albuterol Sulfate* (Ventolin HFA*) 18 Gm Hfa.aer.ad, 2 PUFF INHALATION Q4H, #1 INHALER Prov:RAIZA GUTIERRES MD 10/04/18 Azithromycin* (Zithromax*) 250 Mg Tablet, 250 MG PO .ZPACK DIRECTED, #6 TAB TAKE 500 MG (2 TABS) THE FIRST DAY THEN 250 MG (1 TAB) DAYS 2-5 Prov:RAIZA GUTIERRES MD 10/04/18 Cetirizine Hcl* (Zyrtec*) 10 Mg Capsule, 10 MG PO DAILY, #14 TAB.CHEW Prov:GHULAM BLOCK PA-C 11/06/17 Albuterol Sulfate* (Albuterol Sulfate* Neb) 0.083%-3 Ml Neb, 2.5 MG NEB Q4 PRN for SHORTNESS OF BREATH, #30 EA Prov:GHULAM BLOCK PA-C 11/06/17 Albuterol Sulfate* (Ventolin HFA*) 18 Gm Hfa.aer.ad, 2 PUFF INHALATION Q4H, #1 INHALER Prov:GHULAM BLOCK PA-C 11/06/17 Doxycycline Hyclate* (Doxycycline Hyclate*) 100 Mg Tablet.dr, 100 MG PO BID for 10 Days, TAB Prov:GHULAM BLOCK PA-C 11/06/17 Hydrocodone/Acetaminophen (Rosine 5-325 Tablet) 1 Each Tablet, 1 TAB PO Q6H PRN for PAIN, #20 TAB Prov:ANGEL LILLY MD 06/09/17 Mupirocin Calcium* (Mupirocin*) 2% - 15 Gram Cream..g., 1 APPLIC TOP TID for 28 Days, #2 TUB Prov:ANGEL LILLY MD 06/09/17 Sulfamethoxazole/Trimethoprim* (Bactrim Ds* Tablet) 1 Each Tablet, 1 TAB PO BID for 28 Days, TAB Prov:ANGEL LILLY MD 06/09/17 Albuterol Sulfate* (Proair HFA*) 8.5 Gm Hfa.aer.ad, 2 PUFF INH Q4, #1 INHALER Prov:ANGEL LILLY MD 06/09/17 Insulin Lispro (Humalog) 100 Unit/1 Ml Cartridge, 12 UNIT SQ AC MEALS for 30 Days Prov:ANGEL LILLY MD 06/09/17 Metformin* (Glucophage*) 1,000 Mg Tablet, 1000 MG PO BID for 30 Days Prov:ANGEL LILLY MD 06/09/17 Insulin Glargine* (Lantus*) 100 Unit/Ml Soln, 39 UNIT SC QHS, #1 VIAL Prov:ANGEL LILLY MD 06/09/17 Tramadol HCl (Tramadol HCl) 50 Mg Tablet, 50 MG PO Q4 PRN for PAIN, #20 TAB Prov:SANDRA COOPER PA-C 04/13/17 Gabapentin* (Neurontin*) 100 Mg Capsule, 100 MG PO TID, #60 CAP Prov:SANDRA COOPER PA-C 04/13/17 Ibuprofen* (Ibuprofen*) 600 Mg Tablet, 600 MG PO Q8 for PAIN AND/OR INFLAMMATION, #30 TAB Prov:DALY BOYCE MD 08/25/16 Sulfamethoxazole-Trimethoprim* (Bactrim* DS) 800-160 Mg Tab, 1 TAB PO BID for 10 Days, TAB Prov:DALY BOYCE MD 08/25/16 Cephalexin* (Keflex*) 500 Mg Capsule, 500 MG PO TID for 10 Days, CAP Prov:DALY BOYCE MD 08/25/16 Oxycodone HCl/Acetaminophen (Percocet 5-325 mg Tablet) 1 Each Tablet, 1 EACH PO TID for PAIN, #20 TAB Prov:DALY BOYCE MD 08/25/16 Allergies Allergies: Coded Allergies: piperacillin (Verified Allergy, Unknown, RASH, 10/04/18) tazobactam (Verified Allergy, Unknown, RASH, 10/04/18) vancomycin (Verified Allergy, Unknown, RASH, 10/04/18) PMhx/Soc History of Surgery: Yes (L great toe amputation ,RT BIG TOE AND 2ND TOE AMPUTATION ) Anesthesia Reaction: No Hx Neurological Disorder: No Hx Respiratory Disorders: Yes (asthma) Hx Cardiac Disorders: Yes (HTN, Hyperlipidemia) Hx Psychiatric Problems: No Hx Miscellaneous Medical Probl: No Hx Alcohol Use: Yes (hx 3beers/day) Hx Substance Use: No Hx Tobacco Use: No Smoking Status: Never smoker FmHx Family History: No diabetes, No coronary disease, No other Physical Exam Vitals Vital Signs Date Temp Pulse Resp B/P (MAP) Pulse Ox O2 O2 Flow FiO2 Time Delivery Rate 01/27/19 97.9 81 18 130/90 98 08:30 (103) Physical Exam GENERAL: The patient is well-appearing, well-nourished, in no acute distress CHEST: Clear to auscultation bilaterally. There are no rales, wheezes or rhonchi. HEART: Regular rate and rhythm. No murmurs, clicks, rubs or gallops. No S3 or S4. EXTREMITIES: Equal pulses bilaterally. There is no peripheral clubbing, cy anosis or edema. No focal swelling or erythema. Full range of motion. NEUROLOGIC: Alert and oriented. Cranial nerves II through XII intact. Motor strength in all 4 extremities with 5 out of 5 strength. Sensation grossly intact. Normal speech and gait. SKIN: Scabbed area noted to the volar aspect of the left foot. No surrounding erythema. No purulence extracted. Procedures/MDM DIAGNOSTIC IMAGING REPORT Patient: ALCIDES FLORES : 1985 Age: 33 Sex: M MR #: [id number] DOS: 01/27/19 0845 Ordering MD: ZARA BROWN PA-C Location: E Room/Bed: PROCEDURE: Left foot series CLINICAL INDICATION: Pain TECHNIQUE: AP lateral and oblique images left foot were obtained COMPARISON: Left foot series 06/09/2017 FINDINGS: The patient is status post resection left first toe and mid and distal left first metatarsal bone. Status post resection of the distal left second toe with residual left second proximal phalangeal present. No evidence acute fractures dislocations or focal bony blastic or lytic lesions. No evidence of erosions. Atherosclerotic vascular disease present. Soft tissues are otherwise unremarkable. IMPRESSION: 1. Partial resection of the left second toe, resection of the left first toe and partial resection of the distal left first metatarsal bone. 2. No plain imaging evidence of osteomyelitis. 3. No acute fractures dislocations or erosions. MDM: 33-year-old male presenting with history of diabetic foot ulcer. Patient is an area that appears to be chronic wound however given he had a report of purulence from the affected area I will treat with oral antibiotics and recommend close follow-up. I have low suspicion for deep tracking infection. I have low suspicion for osteomyelitis. Patient is discharged with strict ER precautions and told to follow-up with primary care within 1 to 2 days for close evaluation. She is discharged with strict ER precautions. All questions answered at discharge Departure Diagnosis: Primary Impression: Diabetic foot ulcer Condition: Stable Patient Instructions: Diabetic Foot Ulcers Referrals: [facility] Additional Instructions: FOLLOW UP WITH YOUR PRIMARY CARE PHYSICIAN TOMORROW.Return to this facility if you are not improving as expected. ZOHAIB BROWN PA-C Jan 27, 2019 10:17
== END 2019-01-27 09:48 | disposition home or self-care (01) ==
LOC: FTE 08:21
DX: E11.621 Type 2 diabetes mellitus with foot ulcer (principal); J45.909 Unspecified asthma, uncomplicated; I10 Essential (primary) hypertension; L97.529 Non-pressure chronic ulcer of other part of left foot with unspecified severity; Z79.4 Long term (current) use of insulin
CPT/HCPCS: 73630; Z7502

== ENCOUNTER 2019-03-09 11:43 | Emergency (ER) | payer MEDICAID ==
[~2019-03-09] VITALS: Ht 175.3 cm; Wt 78.8 kg
[2019-03-09 11:52] VITALS: BP 135/78; PULSE 75; RESP 18; Ht 175.3 cm; Wt 78.8 kg
[2019-03-09] MEDS ORDERED: ALBUTEROL 0.083% (NEB) 2.5 MG/3 ML AMP NEB STA (12:21)
[2019-03-09] MEDS ORDERED: IPRATROPIUM (NEB) 0.5 MG/2.5 ML AMP NEB STA (12:21)
[2019-03-09] MEDS ORDERED: DEXAMETHASONE 10 MG/ML 1 ML INJ IM STA (12:21)
[2019-03-09] MEDS ORDERED: KETOROLAC 30 MG INJ IM STA (12:21)
[2019-03-09] MEDS ORDERED: NAPR-985 PO (12:34)
--- NOTE | 2019-03-09 12:39 | ERD ---
ER Documentation Chief Complaint Chief Complaint HEADACHE WITH LEFT FLANK PAIN, NUMBNESS IN LT LEG. DIABETES. HPI 33-year-old with past medical history of diabetes type 2, hypertension, asthma presents with complaint of headache, left-sided flank pain. Describes headache is pressure-like pain to the back of his head lateral shoulders since 5 AM this morning. Also with complaint of upper back pain. He denies blurry vision, pain with eye movement, recent fall or trauma, nausea, vomiting. Has taken Tylenol for his symptoms without much relief per patient. He otherwise denies fevers, chills, shortness of breath, dyspnea, urinary symptoms. At time evaluation patient nontoxic-appearing with normal triage vital signs. ROS All systems reviewed and are negative except as per history of present illness. Medications Home Meds Active Scripts Naproxen* (Naprosyn*) 500 Mg Tablet, 500 MG PO BID PRN for PAIN AND/OR INFLAMMATION, #30 TAB Prov:JUAN FANG PA-C 03/09/19 Sulfamethoxazole/Trimethoprim* (Bactrim Ds* Tablet) 1 Each Tablet, 1 TAB PO BID, #14 TAB Prov:ZOHAIB BROWN PA-C 01/27/19 Cephalexin* (Keflex*) 500 Mg Capsule, 500 MG PO QID for 7 Days, CAP Prov:ZOHAIB BROWN PA-C 01/27/19 Naproxen* (Naprosyn*) 500 Mg Tablet, 500 MG PO BID PRN for PAIN AND/OR INFLAMMATION, #30 TAB Prov:SAMIRA SNOW MD 01/05/19 Ibuprofen* (Motrin*) 600 Mg Tab, 600 MG PO Q6, #15 TAB Prov:RAIZA GUTIERRES MD 10/04/18 Prednisone* (Prednisone*) 20 Mg Tab, 40 MG PO DAILY for 4 Days, TAB Start October 05, 2018 Prov:RAIZA GUTIERRES MD 10/04/18 Albuterol Sulfate* (Ventolin HFA*) 18 Gm Hfa.aer.ad, 2 PUFF INHALATION Q4H, #1 INHALER Prov:RAIZA GUTIERRES MD 10/04/18 Azithromycin* (Zithromax*) 250 Mg Tablet, 250 MG PO .NaifPACK DIRECTED, #6 TAB TAKE 500 MG (2 TABS) THE FIRST DAY THEN 250 MG (1 TAB) DAYS 2-5 Prov:RAIZA GUTIERRES MD 10/04/18 Cetirizine Hcl* (Zyrtec*) 10 Mg Capsule, 10 MG PO DAILY, #14 TAB.CHEW Prov:GHULAM BLOCK PA-C 11/06/17 Albuterol Sulfate* (Albuterol Sulfate* Neb) 0.083%-3 Ml Neb, 2.5 MG NEB Q4 PRN for SHORTNESS OF BREATH, #30 EA Prov:GHULAM BLOCK PA-C 11/06/17 Albuterol Sulfate* (Ventolin HFA*) 18 Gm Hfa.aer.ad, 2 PUFF INHALATION Q4H, #1 INHALER Prov:GHULAM BLOCK PA-C 11/06/17 Doxycycline Hyclate* (Doxycycline Hyclate*) 100 Mg Tablet.dr, 100 MG PO BID for 10 Days, TAB Prov:GHULAM BLOCK PA-C 11/06/17 Hydrocodone/Acetaminophen ([place] 5-325 Tablet) 1 Each Tablet, 1 TAB PO Q6H PRN for PAIN, #20 TAB Prov:ANGEL LILLY MD 06/09/17 Mupirocin Calcium* (Mupirocin*) 2% - 15 Gram Cream..g., 1 APPLIC TOP TID for 28 Days, #2 TUB Prov:ANGEL LILLY MD 06/09/17 Sulfamethoxazole/Trimethoprim* (Bactrim Ds* Tablet) 1 Each Tablet, 1 TAB PO BID for 28 Days, TAB Prov:ANGEL LILLY MD 06/09/17 Albuterol Sulfate* (Proair HFA*) 8.5 Gm Hfa.aer.ad, 2 PUFF INH Q4, #1 INHALER Prov:ANGEL LILLY MD 06/09/17 Insulin Lispro (Humalog) 100 Unit/1 Ml Cartridge, 12 UNIT SQ AC MEALS for 30 Days Prov:ANGEL LILLY MD 06/09/17 Metformin* (Glucophage*) 1,000 Mg Tablet, 1000 MG PO BID for 30 Days Prov:ANGEL LILLY MD 06/09/17 Insulin Glargine* (Lantus*) 100 Unit/Ml Soln, 39 UNIT SC QHS, #1 VIAL Prov:ANGEL LILLY MD 06/09/17 Tramadol HCl (Tramadol HCl) 50 Mg Tablet, 50 MG PO Q4 PRN for PAIN, #20 TAB Prov:SANDRA COOPER PA-C 04/13/17 Gabapentin* (Neurontin*) 100 Mg Capsule, 100 MG PO TID, #60 CAP Prov:SANDRA COOPER PA-C 04/13/17 Ibuprofen* (Ibuprofen*) 600 Mg Tablet, 600 MG PO Q8 for PAIN AND/OR INFLAMMATION, #30 TAB Prov:DALY BOYCE MD 08/25/16 Sulfamethoxazole-Trimethoprim* (Bactrim* DS) 800-160 Mg Tab, 1 TAB PO BID for 10 Days, TAB Prov:DALY BOYCE MD 08/25/16 Cephalexin* (Keflex*) 500 Mg Capsule, 500 MG PO TID for 10 Days, CAP Prov:DALY BOYCE MD 08/25/16 Oxycodone HCl/Acetaminophen (Percocet 5-325 mg Tablet) 1 Each Tablet, 1 EACH PO TID for PAIN, #20 TAB Prov:DALY BOYCE MD 08/25/16 Allergies Allergies: Coded Allergies: piperacillin (Verified Allergy, Unknown, RASH, 03/09/19) tazobactam (Verified Allergy, Unknown, RASH, 03/09/19) vancomycin (Verified Allergy, Unknown, RASH, 03/09/19) PMhx/Soc History of Surgery: Yes (L great toe amputation ,RT BIG TOE AND 2ND TOE AMPUTATION ) Anesthesia Reaction: No Hx Neurological Disorder: No Hx Respiratory Disorders: Yes (asthma) Hx Cardiac Disorders: Yes (HTN, Hyperlipidemia) Hx Psychiatric Problems: No Hx Miscellaneous Medical Probl: No Hx Alcohol Use: Yes (hx 3beers/day) Hx Substance Use: No Hx Tobacco Use: No Smoking Status: Never smoker FmHx Family History: No diabetes, No coronary disease, No other Physical Exam Vitals Vital Signs Date Temp Pulse Resp B/P (MAP) Pulse Ox O2 O2 Flow FiO2 Time Delivery Rate 03/09/19 78 18 95 21 12:38 03/09/19 97.5 75 18 135/78 99 11:52 (97) Physical Exam I have reviewed the triage vital signs. Const: Well nourished, well developed, appears stated age Eyes: PERRL, no conjunctival injection HENT: NCAT, Neck supple without meningismus CV: RRR, Warm, well-perfused extremities RESP: Mild expiratory wheezing to bilateral lung perez, no rales or rhonchi, Unlabored respiratory effort GI: soft, non-tender, non-distended, no masses MSK: No gross deformities appreciated, no midline tenderness, full range of motion, 5 out of 5 strength to bilateral upper extremities, SI LT throughout Skin: Warm, dry. No rashes Neuro: grossly non focal Psych: Appropriate mood and affect. Results 24 hrs Current Medications Medications Dose Sig/Eloina Start Time Status Last (Trade) Ordered Route PRN Stop Time Admin Dose Reason Admin Albuterol 2.5 mg ONCE STAT 03/09/19 DC 03/09/19 (Proventil NEB 12:21 12:38 0.083% (Neb)) 03/09/19 12:23 Ipratropium 0.5 mg ONCE STAT 03/09/19 DC 03/09/19 [place] NEB 12:21 12:38 (Atrovent 03/09/19 12:23 0.02% (Neb)) 10 mg ONCE STAT 03/09/19 DC 03/09/19 Dexamethasone IM 12:21 12:28 (Decadron) 03/09/19 12:23 Ketorolac 30 mg ONCE STAT 03/09/19 DC 03/09/19 Tromethamine IM 12:21 12:29 (Toradol) 03/09/19 12:23 Procedures/MDM 33-year-old male presents with complaint of headache. This patient presents with a headache most consistent with . Differential diagnosis includes migraine versus tension type headache. No headache red flags. Neurologic exam without evidence of meningismus, focal neurologic findings. Presentation not consistent with acute intracranial bleed to include SAH (lack of risk factors, headache history). Presentation not consistent with acute [employer]ORDINATOR infection to include meningitis or brain abscess, Temporal arteritis unlikely, as is acute angle closure glaucoma given history and physical findings. Presentation not consistent with other acute, emergent causes of headache at this time. Plan to treat symptomatically with pain medication. No indication for imaging/LP at this time. Patient did have mild expiratory wheezing on exam treated with DuoNeb's in the ED. I have low suspicion for underlying bacterial infection warranting imaging or further work-up at this time. ED Course: On reassessment patient improved with nebulizers and pain medications DISPOSITION PLAN: We discussed follow up with the patient's primary care doctor within 24 to 48 ho urs. Patient counseled regarding my diagnostic impression and care plan. Prior to discharge all questions answered. Pt agrees with treatment plan and understands strict return precautions. Precautionary instructions provided including instructions to return to the ER if not improving or for any worsening or changing symptoms or concerns. Disclaimer: Inadvertent spelling and grammatical errors are likely due to EHR/dictation software use and do not reflect on the overall quality of patient care. Also, please note that the electronic time recorded on this note does not necessarily reflect the actual time of the patient encounter. Departure Diagnosis: Primary Impression: Head ache Condition: Stable Patient Instructions: Self-Care for Headaches Referrals: [facility] YOU HAVE RECEIVED A MEDICAL SCREENING EXAM AND THE RESULTS INDICATE THAT YOU DO NOT HAVE A CONDITION THAT REQUIRES URGENT TREATMENT IN THE EMERGENCY DEPARTMENT. FURTHER EVALUATION AND TREATMENT OF YOUR CONDITION CAN WAIT UNTIL YOU ARE SEEN IN YOUR DOCTORS OFFICE WITHIN THE NEXT 1-2 DAYS. IT IS YOUR RESPONSIBILITY TO MAKE AN APPOINTMENT FOR FOLOW-UP CARE. IF YOU HAVE A PRIMARY DOCTOR --you should call your primary doctor and schedule an appointment IF YOU DO NOT HAVE A PRIMARY DOCTOR YOU CAN CALL OUR PHYSICIAN REFERRAL HOTLINE AT IF YOU CAN NOT AFFORD TO SEE A PHYSICIAN YOU CAN CHOSE FROM THE FOLLOWING [facility] [address] [facility]. [facility] [address] [facility] [facility] [address] [facility] [facility] [address] [facility]. [facility] [address] [facility]. [facility]. [address] Additional Instructions: Call your primary care doctor TOMORROW for an appointment during the next 2-3 days.See the doctor sooner or return here if your condition worsens before your appointment time. JUAN FANG PA-C Mar 09, 2019 12:39
== END 2019-03-09 13:36 | disposition home or self-care (01) ==
LOC: FTE 11:43
DX: R51 Headache (principal); I10 Essential (primary) hypertension; E11.9 Type 2 diabetes mellitus without complications; J45.901 Unspecified asthma with (acute) exacerbation; Z79.4 Long term (current) use of insulin
CPT/HCPCS: 94664; 96372; J1100; J1885; Z7502; Z7610